=== PATIENT | male | born 1950 | race Caucasian/White ===

== ENCOUNTER 2017-05-11 12:59 | Day surgery (SDC) | payer OTHER ==
[~2017-05-11] VITALS: Ht 176.5 cm; Wt 107.5 kg
[~2017-05-11 12:59] MED LIST: CELEXA40 MG PO; GLUCOTROL5 MG PO; INDOCIN25 MG PO; KLONOPIN1 MG PO; METFORMIN HCL1000 M3 PO; ZESTRIL20 MG PO
[2017-05-11 14:06] LABS: POINT-OF-CARE METER ID UU14174212
== END 2017-05-11 15:17 | disposition home or self-care (01) ==
LOC: PAIN 12:59 → SDC 14:00 → PAIN 14:00
PROVIDERS: Anesthesiology Pain Medicine
PROC: 3E0S33Z Introduction of Anti-inflammatory into Epidural Space, Percutaneous Approach (ICD-10-PCS; principal; 2017-05-11)
DX: M47.22 Other spondylosis with radiculopathy, cervical region (principal); M50.20 Other cervical disc displacement, unspecified cervical region; F17.290 Nicotine dependence, other tobacco product, uncomplicated; E11.319 Type 2 diabetes mellitus with unspecified diabetic retinopathy without macular edema
CPT/HCPCS: 82948; J1030; J2250; J3010

== ENCOUNTER 2017-06-24 10:11 | Day surgery (SDC) | payer OTHER ==
[~2017-06-24] VITALS: Ht 176.5 cm; Wt 108.0 kg
[2017-06-24 10:45] LABS: POINT-OF-CARE METER ID UU13113694
== END 2017-06-24 11:40 | disposition home or self-care (01) ==
LOC: PAIN 10:11 → SDC 11:15 → PAIN 11:40
PROVIDERS: Anesthesiology Pain Medicine
PROC: 3E0S33Z Introduction of Anti-inflammatory into Epidural Space, Percutaneous Approach (ICD-10-PCS; principal; 2017-06-24)
DX: M47.23 Other spondylosis with radiculopathy, cervicothoracic region (principal); F41.9 Anxiety disorder, unspecified; M50.20 Other cervical disc displacement, unspecified cervical region; E11.40 Type 2 diabetes mellitus with diabetic neuropathy, unspecified; I10 Essential (primary) hypertension; Z79.84 Long term (current) use of oral hypoglycemic drugs
CPT/HCPCS: 82948; J1030; J2250; J3010

== ENCOUNTER 2017-08-30 06:56 | Day surgery (SDC) | payer OTHER ==
[~2017-08-30] VITALS: Ht 176.5 cm; Wt 108.0 kg
[2017-08-30 07:48] LABS: POINT-OF-CARE METER ID UU14174212; POINT-OF-CARE USER ID AHSRSCSLC11
== END 2017-08-30 09:20 | disposition home or self-care (01) ==
LOC: PAIN 06:56 → SDC 08:00 → PAIN 08:00
PROVIDERS: Anesthesiology Pain Medicine
DX: M47.812 Spondylosis without myelopathy or radiculopathy, cervical region (principal); M43.12 Spondylolisthesis, cervical region; M50.20 Other cervical disc displacement, unspecified cervical region; E11.40 Type 2 diabetes mellitus with diabetic neuropathy, unspecified; M19.90 Unspecified osteoarthritis, unspecified site; I10 Essential (primary) hypertension; G89.29 Other chronic pain; M25.511 Pain in right shoulder; Z79.84 Long term (current) use of oral hypoglycemic drugs
CPT/HCPCS: 82948; J1030; J2250; J3010; S0020